=== PATIENT | male | born 1945 | race American Indian/Alaskan Native ===

== ENCOUNTER 2019-08-29 07:38 | Day surgery (SDC) | payer OTHER ==
--- NOTE | 2019-08-29 08:25 | Anesthesia Consultation ---
Anesthesia Consult and Med Hx Date of service: 08/29/19 - Airway Anesthetic Teeth Evaluation: Dentures ROM Head & Neck: Adequate Mental/Hyoid Distance: Adequate Mallampati Class: Class II Intubation Access Assessment: Probably Good - Pre-Operative Health Status ASA Pre-Surgery Classification: ASA3 Proposed Anesthetic Plan: MAC - Pulmonary Hx Smoking: No Hx Asthma: No Hx Respiratory Symptoms: No SOB: No COPD: No Home Oxygen Therapy: No Hx Pneumonia: No Hx Sleep Apnea: Yes - Cardiovascular System Hx Hypertension: Yes Hx Coronary Artery Disease: Yes (stents) Hx Heart Attack/AMI: No Hx Angina: No Hx Percutaneous Transluminal Coronary Angioplasty (PTCA): No Hx Cardia Arrhythmia: No Hx Pacemaker: No Hx Internal Defibrillator: No Hx Valvular Heart Disease: No Hx Heart Murmur: No Hx Peripheral Vascular Disease: No - Central Nervous System Hx Neuromuscular Disorder: No Hx Seizures: No CVA: No Hx Back Pain: Yes Hx Psychiatric Problems: Yes (PTSD) - Gastrointestinal Hx Ulcer: No Hx Gastroesophageal Reflux Disease: No - Endocrine Hx Renal Disease: No Hx End Stage Renal Disease: No Hx Cirrhosis: No Hx Liver Disease: No Hx Insulin Dependent Diabetes: Yes Hx Non-Insulin Dependent Diabetes: No Hx Thyroid Disease: No Hx Hypothyroidism: No Hx Hyperthyroidism: No - Hematic Hx Anemia: No Hx Sickle Cell Disease: No - Other Systems Hx Alcohol Use: No Hx Substance Use: No Hx Cancer: No Hx Obesity: No
--- NOTE | 2019-08-29 08:25 | Anesthesia Day of Surgery ---
Anesthesia Day of Surgery - Day of Surgery Patient Examined: Yes Patient H&P Reviewed: Yes Patient is NPO: Yes
[2019-08-29] MEDS ORDERED: SODIUM CHLORIDE 0.9% 1000 ML 1,000 ML ONE (08:43)
[2019-08-29] MEDS ORDERED: SODIUM CHLORIDE 0.9% 1000 ML 1,000 ML IV SCH (09:00)
[2019-08-29] MEDS ORDERED: PROPOFOL 200 MG/20 ML VIAL IV ONE ×2 (10:08)
--- NOTE | 2019-08-29 10:41 | Procedure Note ---
Date of procedure: 08/29/19 Pre-op diagnosis: Colon Polyp Screening/ F/H/O Cancer (father Bladder Cancer) Post-op diagnosis: other (Multiple, colon Polyps (3 in the Cecum and 3 in the Rectum)/ Moderate, Left Colon diverticuli/ Mild to Moderate Internal Hemorrhoid) Procedure: Colonoscopy with Cold Snare Polypectomy and Cold Biopsy [place] [facility] [place]: ALVIN BUTLER Estimated blood loss: minimal Pathology: list Specimen disposition: to lab Condition: stable Disposition: same day (Avoid aspirin and NSAID for 4 dayd; otherwise resume home medication. Encourage fiber intake and follow up in 1 to 2 weeks ([phone]).)
--- NOTE | 2019-08-29 11:01 | Operative Report ---
COLONOSCOPY INDICATIONS: The patient is a 73-year-old -[place] gentleman with a family history of cancer. The patient's father had bladder cancer. The patient had a colonoscopy done about 10 years back, which was essentially unremarkable at that time. Colonoscopy was done as part of colon polyp screening. DESCRIPTION OF PROCEDURE: Procedure was done after getting informed consent. Initial rectal exam was unremarkable. Instrument was passed through the rectum onto the cecum, which was identified with ileocecal valve and the appendiceal orifice. Visualization was fair. There were 3 polyps noted in the cecum, 2 were about 9-10 mm in diameter, removed by cold biopsy and retrieved and one was removed by cold biopsy. The remaining part of the cecum, ascending colon, transverse colon showed normal mucosa. There was moderate diverticular disease involving the left colon as well as the distal transverse colon within the descending colon, and sigmoid showed diverticular disease. The rectum showed 3 rectal polyps, two that were removed by cold biopsy and the rectum also showed mild to moderate internal hemorrhoid on the retroverted view. There was minimal bleeding from the biopsy sites. No complications associated with the procedure. ASSESSMENT: Colon polyp screening, multiple colon polyps, 3 in the cecum, 3 in the rectum that were removed. Moderate diverticular disease mainly in the left colon and mild to moderate internal hemorrhoid. PLAN: To encourage the patient to take fiber supplements, avoid aspirin and aspirin-related products for the next 4 days, but otherwise resume home medication. Have the patient follow up in the office in 1-2 weeks' time. The procedure was done in the GI lab with assistance of the GI lab team, which included Nasra LYONS and Troy de jesus and with assistance of anesthesia. JOB# [id number] LEENA/BERTA
[2019-08-29 11:12] VITALS: BP 113/54
--- NOTE | 2019-08-29 11:39 | Post Anesthesia Evaluation ---
- Post Anesthesia Evaluation Patient Participated: Yes Airway Patent: Yes Stable Respiratory Function: Yes Nausea/Vomiting: No Temp > 96.8F: Yes Pain Manageable: Yes Adequeate Hydration: Yes Anesthesia Complications: No
== END 2019-08-29 11:25 | disposition home or self-care (01) ==
LOC: GIO 07:38
DX: Z12.11 Encounter for screening for malignant neoplasm of colon (principal); D12.0 Benign neoplasm of cecum; K57.30 Diverticulosis of large intestine without perforation or abscess without bleeding; K64.8 Other hemorrhoids; H40.9 Unspecified glaucoma; G62.9 Polyneuropathy, unspecified; E11.42 Type 2 diabetes mellitus with diabetic polyneuropathy; E11.51 Type 2 diabetes mellitus with diabetic peripheral angiopathy without gangrene; E11.39 Type 2 diabetes mellitus with other diabetic ophthalmic complication; I25.10 Atherosclerotic heart disease of native coronary artery without angina pectoris; I73.9 Peripheral vascular disease, unspecified; I10 Essential (primary) hypertension; G47.30 Sleep apnea, unspecified; F43.10 Post-traumatic stress disorder, unspecified; M19.90 Unspecified osteoarthritis, unspecified site; Z80.8 Family history of malignant neoplasm of other organs or systems; Z80.52 Family history of malignant neoplasm of bladder; Z95.1 Presence of aortocoronary bypass graft; Z90.49 Acquired absence of other specified parts of digestive tract; Z98.890 Other specified postprocedural states; Z88.8 Allergy status to other drugs, medicaments and biological substances
CPT/HCPCS: 45380; 82962; 88305; J2704; J7030